=== PATIENT | male | born 1970 | race Caucasian/White ===

== ENCOUNTER 2016-06-03 15:44 | Emergency (ER) | payer OTHER ==
[2016-06-03] MEDS ORDERED: cefTRIAXone 2 GM in D5W 50 ML IV ONE (16:02)
[2016-06-03] MEDS ORDERED: NS 1,000 ML IV ONE ×3 (16:02→17:31)
[2016-06-03] MEDS ORDERED: ACETAMINOPHEN 500 MG TAB PO ONE (16:03)
[2016-06-03] MEDS ORDERED: AZITHROMYCIN 250 MG TAB PO ONE (16:03)
[2016-06-03] MEDS ORDERED: ONDANSETRON 4 MG/2 ML VIAL IVP ONE (16:03)
--- NOTE | 2016-06-03 16:09 | EDPHY ---
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 He was sent here from the [facility]. The nurse practitioner called from the [facility] and stated that he needed to receive antibiotics. She did a pelvic exam there that was positive for GC Chlamydia. She recommended he get Rocephin and a gram of azithromycin. She also requested that we do a flu swab. She did not want HIV testing done here is a was done there. She does request blood cultures. The patient tells me that he is not in a condition to advocate for herself clearly. The practitioner at the [facility] did notice a chancre and also treated him with Bicillin. She had a pelvic exam at the clinic and declines another. REVIEW OF SYSTEMS: Constitutional: See HPI EENTM: denies: blurred vision, double vision, nose congestion Respiratory: denies: cough, shortness of breath Cardiac: denies: chest pain, irregular heart rate, lightheadedness, palpitations Gastrointestinal/Abdominal: denies: abdominal pain, diarrhea, nausea, vomiting, blood streaked stools Genitourinary: denies: dysuria, frequency, hematuria, pain Musculoskeletal: See HPI Skin: denies: lesions, rash, jaundice, bruising Neurological: denies: headache, numbness, paresthesia, tingling, dizziness, weakness Hematologic/Lymphatic: denies: blood clots, easy bleeding, easy bruising Immunologic/allergic: denies: HIV/AIDS, transplant EXAM: GENERAL: Curled in bed, shivering minimally cooperative HEAD: Atraumatic, normocephalic. EYES: Pupils equal round and reactive to light, extraocular movements intact, sclera anicteric, conjunctiva are normal. ENT: TMs normal, nares patent, oropharynx clear without exudates. Moist mucous membranes. NECK: Normal range of motion, supple without lymphadenopathy or JVD. LUNGS: Breath sounds clear to auscultation bilaterally and equal. No wheezes rales or rhonchi. HEART: Regular rate and rhythm without murmurs, rubs or gallops. ABDOMEN: Soft, nontender, normoactive bowel sounds. No guarding, no rebound. No masses appreciated. BACK: No CVA tenderness, no spinal tenderness, step-offs or deformities : Refuses EXTREMITIES: Normal range of motion, no pitting or edema. No clubbing or cyanosis. NEUROLOGICAL: Cranial nerves II through XII grossly intact. Normal speech, normal gait. 5/5 strength, normal movement in all extremities, normal sensation PSYCH: Normal mood, normal affect. SKIN: Warm, dry, normal turgor, no visible rashes or lesions. Source: Patient, RN/MD Exam Limitations: No limitations - Personal History Current Tetanus/Diphtheria Vaccine: Unsure Current Tetanus Diphtheria and Acellular Pertussis (TDAP): Unsure - Medical/Surgical History Hx Asthma: Yes Hx Chronic Respiratory Disease: No Hx Diabetes: No Hx Cardiac Disease: No Hx Renal Disease: No Hx Cirrhosis: No Hx Alcoholism: No Hx HIV/AIDS: No Hx Splenectomy or Spleen Trauma: No Other PMH: Transexual Male to Female, STI - Family History Significant Family History: Hypertension - Social History Smoking Status: Never smoked Alcohol Use: Sober Drug Use: None Constitutional: Initial Vital Signs Temperature (C) 32.2 C L 06/03/16 15:54 Heart Rate 89 06/03/16 15:54 Respiratory Rate 20 06/03/16 15:54 Blood Pressure 106/89 H 06/03/16 15:54 O2 Sat (%) 97 06/03/16 15:54 O2 Delivery Mode Room Air O2 (L/minute) 2 Allergies/Adverse Reactions: codeine Allergy (Verified 06/03/16 16:15) Medical Decision Making ED Course/Re-evaluation: I spoke with Elvira the nurse practitioner from [facility]. She is requesting fluids, fever control, blood cultures, azithromycin and Rocephin. She has already given Bicillin for the chancre. This could be primary syphilis versus gonorrhea chlamydia or acute HIV. She has already done testing for this. Also could be the flu. We will swab for this. Patient had a pelvic exam just prior to arrival and declines another. 5:30 p.m. the patient is feeling much better. He tells me that actually he is transitioning from female to male. He has had double mastectomy but no genital surgery. He does not have ovaries. Repeat abdominal exam is benign. Still has a mild headache. I will treat with Reglan and more hydration. Heart rate in the 90s. Afebrile. Nontoxic appearing. 6:30 p.m. the patient is feeling completely better. He is ambulating to the bathroom. His vital signs are stable. He declines further treatment or observation. He is eager to go home. He will follow up with the [facility] as previously planned. We discussed indications for returning. His abdominal exam remains benign. Differential Diagnosis: Partial list of the Differential diagnosis considered include but were not limited to; pelvic inflammatory disease, syphilis, HIV, sepsis, influenza, dehydration and although unlikely based on the history and physical exam, I also considered appendicitis, diverticulitis, biliary disease meningitis. I discussed these differential diagnoses and the plan with the patient as well as the usual and expected course. The patient understands that the diagnosis is provisional and that in medicine we are not always correct and that further workup is often warranted. Usual and customary warnings were given. All of the patient's questions were answered. The patient was instructed to return to the emergency department should the symptoms at all worsen or return, otherwise to followup with the physician as we discussed. - Data Points Laboratory Results: Laboratory Results 06/03/16 15:50 06/03/16 15:50 06/03/16 15:50 WBC 4.54 10^3/uL (3.80-9.50) RBC 5.99 10^6/uL (4.40-6.38) Hgb 17.8 H g/dL (13.7-17.5) Hct 50.6 % (40.0-51.0) MCV 84.5 fL (81.5-99.8) MCH 29.7 pg (27.9-34.1) MCHC 35.2 g/dL (32.4-36.7) RDW 12.8 % (11.5-15.2) Plt Count 120 L 10^3/uL (150-400) MPV 9.5 fL (8.7-11.7) Neut % (Auto) 77.2 H % (39.3-74.2) Lymph % (Auto) 8.8 L % (15.0-45.0) Hall % (Auto) 13.4 H % (4.5-13.0) Eos % (Auto) 0.2 L % (0.6-7.6) Baso % (Auto) 0.2 L % (0.3-1.7) Nucleat RBC Rel Count 0.0 % (0.0-0.2) Absolute Neuts (auto) 3.50 10^3/uL (1.70-6.50) Absolute Lymphs (auto) 0.40 L 10^3/uL (1.00-3.00) Absolute Monos (auto) 0.61 10^3/uL (0.30-0.80) Absolute Eos (auto) 0.01 L 10^3/uL (0.03-0.40) Absolute Basos (auto) 0.01 L 10^3/uL (0.02-0.10) Absolute Nucleated RBC 0.00 10^3/uL (0-0.01) Immature Gran % 0.2 % (0.0-1.1) Immature Gran # 0.01 10^3/uL (0.00-0.10) Sodium 133 L mEq/L (134-144) Potassium 4.3 mEq/L (3.5-5.2) Chloride 98 mEq/L (97-110) Carbon Dioxide 24 mEq/l (22-31) Anion Gap 11 mEq/L (8-16) BUN 15 mg/dL (7-23) Creatinine 1.1 mg/dL (0.7-1.3) Estimated GFR > 60 Glucose 90 mg/dL (70-100) Calcium 10.4 mg/dL (8.5-10.4) Influenza Typ A,B (DFA) NEGATIVE FOR FLU (NEGATIVE) Medications Given: Discontinued Medications Acetaminophen (Tylenol) 1,000 mg PO EDNOW ONE Stop: 06/03/16 16:04 Last Admin: 06/03/16 16:13 Dose: 1,000 mg Azithromycin (Zithromax) 1,000 mg PO EDNOW ONE PRN Reason: Protocol Stop: 06/03/16 16:04 Last Admin: 06/03/16 16:13 Dose: 1,000 mg Hydromorphone HCl (Dilaudid) 1 mg IVP EDNOW ONE Stop: 06/03/16 16:53 Last Admin: 06/03/16 17:08 Dose: 1 mg Ceftriaxone Sodium 2 gm/ (Dextrose) 50 mls @ 100 mls/hr IV EDNOW ONE PRN Reason: Protocol Stop: 06/03/16 16:31 Last Admin: 06/03/16 17:00 Dose: 50 mls Sodium Chloride (Ns) 1,000 mls @ 0 mls/hr IV ONCE ONE PRN Reason: Wide Open Stop: 06/03/16 16:03 Last Admin: 06/03/16 16:12 Dose: 1,000 mls Sodium Chloride (Ns) 1,000 mls @ 0 mls/hr IV ONCE ONE PRN Reason: Wide Open Stop: 06/03/16 16:03 Last Admin: 06/03/16 16:12 Dose: 1,000 mls Sodium Chloride (Ns) 1,000 mls @ 0 mls/hr IV ONCE ONE PRN Reason: Wide Open Stop: 06/03/16 17:32 Last Admin: 06/03/16 17:40 Dose: 1,000 mls Metoclopramide HCl (Reglan Injection) 10 mg IVP EDNOW ONE Stop: 06/03/16 17:32 Last Admin: 06/03/16 17:40 Dose: 10 mg Ondansetron HCl (Zofran) 8 mg IVP EDNOW ONE Stop: 06/03/16 16:04 Last Admin: 06/03/16 16:13 Dose: 8 mg Promethazine HCl (Phenergan 25 Mg Prepack #4) 1 btl TAKEHOME EDNOW ONE Stop: 06/03/16 18:59 Last Admin: 06/03/16 19:03 Dose: 1 btl Departure - Departure Disposition: Home, Routine, Self-Care Clinical Impression: Pelvic inflammatory disease contact Condition: Fair Instructions: Pelvic Inflammatory Disease (ED) Referrals: ROMÁN OLIVA [Primary Care Provider] - As per Instructions Román Tian MD [Medical Doctor] - As per Instructions
[2016-06-03 16:11] LABS: % IMMATURE GRANULYOCYTES 0.2 % (0.0-1.1); ABSOLUTE IMMATURE GRANULOCYTES 0.01 10^3/uL (0.00-0.10); ADD DIFF? NO; ADD MORPH? NO; ADD SCAN? NO; ATYPICAL LYMPHOCYTE FLAG 50 (0-99); FRAGMENT RBC FLAG 0 (0-99); HEMATOCRIT 50.6 % (40.0-51.0); HEMOGLOBIN 17.8 g/dL (13.7-17.5); LEFT SHIFT FLG 20 (0-99); LIPEMIA HEMOLYSIS FLAG 90 (0-99); MEAN CELL HEMOGLOBIN 29.7 pg (27.9-34.1); MEAN CELL HEMOGLOBIN CONCENTR. 35.2 g/dL (32.4-36.7); MEAN CELL VOLUME 84.5 fL (81.5-99.8); MEAN PLATELET VOLUME 9.5 fL (8.7-11.7); PLATELET CLUMPS FLAG 0 (0-99); PLATELET COUNT 120 10^3/uL (150-400); RED BLOOD CELL COUNT 5.99 10^6/uL (4.40-6.38); RED CELL DISTRIBUTION WIDTH 12.8 % (11.5-15.2)
[2016-06-03 16:19] LABS: ANION GAP 11 mEq/L (8-16); CALCIUM 10.4 mg/dL (8.5-10.4); CARBON DIOXIDE 24 mEq/l (22-31); CHLORIDE 98 mEq/L (97-110); CREATININE 1.1 mg/dL (0.7-1.3); GLOMERULAR FILTRATION RATE > 60; GLUCOSE 90 mg/dL (70-100); POTASSIUM 4.3 mEq/L (3.5-5.2); SODIUM 133 mEq/L (134-144)
[2016-06-03] MEDS ORDERED: HYDROmorphONE/DILAUDID 1 MG/ML SYR IVP ONE (16:52)
[2016-06-03] MEDS ORDERED: METOCLOPRAMIDE 10 MG/2 ML VIAL IVP ONE (17:31)
[2016-06-03] MEDS ORDERED: PROMETHAZINE 25 MG PREPACK #4 BTL TAKEHOME ONE (18:58)
[2016-06-03 19:04] VITALS: BP 105/61; PULSE 82; RESP 18; TEMP 98.8; O2SAT 98
== END 2016-06-03 19:03 | disposition home or self-care (01) ==
LOC: EDUNIT#
DX: J45.909 Unspecified asthma, uncomplicated (principal)
CPT/HCPCS: 96374; J0696; J1170; J2405; J2765